=== PATIENT | male | born 1975 | race Caucasian/White ===

== ENCOUNTER 2016-12-01 06:42 | Day surgery (SDC) | payer SELFPAY ==
[~2016-12-01] VITALS: Ht 185.4 cm; Wt 93.4 kg
[2016-12-01 07:23] VITALS: BP 139/83; PULSE 82; TEMP 97.4
[2016-12-01 09:40] VITALS: BP 120/78; PULSE 75; TEMP 97.6
[2016-12-01 09:55] VITALS: BP 116/73; PULSE 61
[2016-12-01 10:10] VITALS: BP 111/78; PULSE 65
[2016-12-01 10:25] VITALS: BP 103/72; PULSE 62
[2016-12-01 10:55] VITALS: BP 105/62; PULSE 70
== END 2016-12-01 11:45 | disposition home or self-care (01) ==
LOC: SDCO 06:42
DX: N43.3 Hydrocele, unspecified (principal); K21.9 Gastro-esophageal reflux disease without esophagitis; F17.210 Nicotine dependence, cigarettes, uncomplicated; Z83.3 Family history of diabetes mellitus; Z80.8 Family history of malignant neoplasm of other organs or systems
CPT/HCPCS: J0690; J1100; J1170; J1885; J2405; J2704; J3010; J7120